=== PATIENT | male | born 1990 | race Caucasian/White ===

== ENCOUNTER 2021-02-02 12:00 | Emergency (ER) | payer SELFPAY | END 2021-02-02 18:00 | disposition home or self-care (01) | LOC: EXPBETH 18:00 | PROVIDERS: Emergency Provider Nurse Practitioner Family | DX: M77.8 Other enthesopathies, not elsewhere classified (principal) | CPT/HCPCS: 99212; G0463 ==

== ENCOUNTER 2021-02-03 17:45 | Emergency (ER) | payer SELFPAY ==
--- NOTE | ~2021-02-03 | XR_ITS ---
EXAMINATION: XR wrist LT min 3V EXAM DATE: 02/03/2021 18:08 INDICATION: Left wrist pain. History of left radial fracture. TECHNIQUE: Left wrist frontal, frontal with ulnar deviation, oblique and lateral projections obtained and reviewed. There is no prior study for comparison. FINDINGS: Left wrist scapholunate joint space is maintained. Carpal bones are unremarkable. There is a healed left radial distal metaphyseal fracture with volar orthopedic plate, supporting screws. 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 There are no bony erosions identified. The re are no acute fractures identified. IMPRESSION: 1. Old radial, ulnar styloid fractures. Reviewed, dictated and finalized at location A.
--- NOTE | 2021-02-03 17:47 | ED.UPPEXIN ---
HPI - Extremity Injury (Upper) General Chief Complaint: Extremity Problem,Nontraumatic Stated Complaint: left wrist pain Time Seen by Provider: 02/03/21 17:47 Source: patient and RN notes reviewed History of Present Illness HPI narrative: Patient is a 31-year-old male who presents the urgent care with complaints of acute on chronic left wrist pain. Patient states that he fractured the wrist approximately 5 years ago and does have hardware in the wrist. 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 Patient denies of any known trauma or obvious injury to the wrist. Patient states that he has been icing for comfort. No other acute complaints. No acute distress noted. Patient aware of the plan of care. Some parts of this dictation were generated by voice recognition software and may contain typographical and/or grammatical inaccuracies. Related Data Home Medications Medication Instructions Recorded Confirmed No Home Medications 02/03/21 02/03/21 Allergies Allergy/AdvReac Type Severity Reaction Status Date / Time No Known Allergies Allergy Verified 02/03/21 18:01 Review of Systems Review of Systems: Narrative: CONSTITUTIONAL: Denies fever, chills, or sweats. EYES: Denies visual changes, redness, or discharge. ENT: Denies rhinorrhea, congestion, sore throat, or otalgia. CARDIOVASCULAR: Denies chest pain, palpitations, or edema. RESPIRATORY: Denies cough or dyspnea. GASTROINTESTINAL: Denies abdominal pain, nausea, vomiting, or diarrhea. GENITOURINARY: Denies dysuria or hematuria. SKIN: Denies rash or itching. MUSCULOSKELETAL: Reports of left wrist pain with decreased mobility NEUROLOGIC: Denies headache, numbness, or weakness. All other systems reviewed are negative, except as documented in HPI. PMFSH Comments At the time of my signature, I reviewed and agree with the nursing past medical, surgical, social, and family history. There is no relevant family history pertinent to the patient complaint. Exam Narrative: Exam Narrative: GENERAL: This is a well-nourished, well-developed patient, in no apparent distress. HEAD: normocephalic, atraumatic. EYES: PERRL. Sclera clear/white. Vision is grossly intact. EARS: External ears normal NOSE: External nose normal with no obvious nasal discharge, nares without redness, no rhinorrhea. THROAT: Mucous membranes moist NECK: Neck supple SKIN: warm, intact with no suspicious lesions or rash, good texture and turgor. NEURO: awake, alert, and oriented to person, place and time. There were no obvious focal neurologic abnormalities. EXTREMITIES: No obvious edema, ecchymosis, erythema or deformity noted to the left wrist. Positive strong left radial pulse with capillary refill less than 2 seconds. Range of motion exercises exacerbate pain however normal range of motion noted. Course Vital Signs Vital signs: Vital Signs Temperature 98.7 F 02/03/21 17:50 Pulse Rate 93 02/03/21 17:50 Respiratory Rate 16 02/03/21 17:50 Blood Pressure 137/63 02/03/21 17:50 Pulse Oximetry 99 02/03/21 17:50 Temperature 98.7 F 02/03/21 17:50 Pulse Rate 93 02/03/21 17:50 Respiratory Rate 16 02/03/21 17:50 Blood Pressure 137/63 02/03/21 17:50 Pulse Oximetry 99 02/03/21 17:50 Reviewed MDM - Extremity Injury (Upper) MDM Narrative Medical decision making narrative: Reviewed x-ray results with the patient. He is aware that x-ray was negative for any notable fracture or deformity. Shows old fractures and hardware. Advised the patient to wear a stable brace while at work to decrease the pain and inflammation in the joint. May use ibuprofen/Tylenol for pain. If you develop severe increase in pain associated with swelling?follow-up with your orthopedic. Follow-up with your PCP within 2 to 5 days or for worsening symptoms or failure to improve. Differential Diagnosis Differential diag
[2021-02-03 17:50] VITALS: BP 137/63; PULSE 93; RESP 16; TEMP 37.1; O2SAT 99
--- NOTE | 2021-02-03 18:10 | PC.NURSE ---
PT DECLINED ICE FOR COMFORT
== END 2021-02-03 18:37 | disposition home or self-care (01) ==
PROVIDERS: Emergency Provider Nurse Practitioner Family
DX: M77.8 Other enthesopathies, not elsewhere classified (principal)
CPT/HCPCS: 73110; 99213; G0463